=== PATIENT | male | born 1980 | race Two or more races ===

== ENCOUNTER 2022-01-02 10:25 | Emergency (ER) | payer SELFPAY ==
[~2022-01-02] VITALS: Ht 177.8 cm; Wt 73.8 kg
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
[2022-01-02] MEDS ORDERED: DIPHTH,PERTUSS(ACELL),TET TOX 0.5 ML DISP.SYRIN. VAX IM ONE (11:30)
[2022-01-02] MEDS ORDERED: LIDOCAINE 2%/EPI 1:100,000 20 ML VIAL. INJ ONE (11:30)
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
[2022-01-02 12:03] VITALS: BP 135/88
== END 2022-01-02 12:04 | disposition home or self-care (01) ==
LOC: ER 10:25
DX: S01.01XA Laceration without foreign body of scalp, initial encounter (principal); R42 Dizziness and giddiness; W22.8XXA Striking against or struck by other objects, initial encounter; Y93.89 Activity, other specified; Y92.89 Other specified places as the place of occurrence of the external cause; Y99.8 Other external cause status
CPT/HCPCS: 12001; 70450; 90471; 90715; 99283; J3490